=== PATIENT | male | born 1970 | race African-American/Black ===

== ENCOUNTER 2016-12-27 21:07 | Emergency (ER) | payer OTHER ==
[~2016-12-27] VITALS: Ht 175.3 cm; Wt 74.8 kg
[~2016-12-27 21:07] MED LIST: ACYCLOVIR 800800 MG PO; ALDACTONE100 MG PO; ALLOPURINOL 10100 M1 PO; AMBIEN; BENTYL 20 MG TA20 M1 PO; BREO ELLIPTA 11 EACH IH; COMPLERA TABLE1 EACH PO; ESTRADIOL 1 MG T1 M1 PO; IBUPROFEN 800800 M1; IBUPROFEN 800800 M1 PO; MEDROXYPROGEST2.5 MG PO; NORCO 5-325 TA1 EACH PO; NORVASC5 MG PO; PROSCAR 5MG TABL5 MG PO; PROZAC20 MG PO; RANITIDINE HCL300 MG PO; TESSALON PERLE100 MG PO; ZOFRAN ODT4 MG PO
[2016-12-27] MEDS ORDERED: KEFLEX500 MG PO (21:26)
[2016-12-27 21:44] VITALS: BP 121/80
== END 2016-12-27 21:45 | disposition home or self-care (01) ==
LOC: ER 21:07
DX: M21.612 Bunion of left foot (principal); L03.116 Cellulitis of left lower limb; F31.9 Bipolar disorder, unspecified; J45.909 Unspecified asthma, uncomplicated; F17.210 Nicotine dependence, cigarettes, uncomplicated; Z21 Asymptomatic human immunodeficiency virus [HIV] infection status

== ENCOUNTER → 2017-02-06 | Outpatient (CLI) | payer OTHER ==
[~2017-02-06] MED LIST changes: +KEFLEX500 MG PO
== END ==
LOC: MRI 11:28
DX: L02.612 Cutaneous abscess of left foot (principal)

== ENCOUNTER 2018-05-01 15:42 | Inpatient (IN) | payer OTHER ==
[~2018-05-01] VITALS: Ht 175.3 cm; Wt 70.3 kg
[2018-05-01] MEDS ORDERED: AMOXICILLIN 50500 MG PO (16:40)
[2018-05-01] MEDS ORDERED: BUSPIRONE HCL10 MG PO (16:40)
[2018-05-01] MEDS ORDERED: QUETIAPINE FUM100 MG PO (16:41)
[2018-05-01] MEDS ORDERED: COMPLERA TABLE1 EACH PO (16:42)
[2018-05-01] MEDS ORDERED: ATOMOXETINE HCL80 MG PO (16:43)
[2018-05-01 18:19] LABS: ABSOLUTE NEUTROPHILS 3.2 thou/uL (1.4-8.2); BASOPHILS 0.2 % (0.0-2.0); EOSINOPHILS 3.9 % (0.0-3.0); HEMATOCRIT 44.5 % (37.0-47.0); HEMOGLOBIN 15.3 gm/dL (12.0-15.0); LYMPHOCYTES 35.6 % (24.0-44.0); MCH 31.5 pg (26.0-34.0); MCHC 34.3 g/dL (28.0-37.0); MCV 91.8 fL (80.0-100.0); MONOCYTES 10.6 % (1.0-8.0); PLATELET COUNT 451 thou/uL (150-400); POLYS 49.7 % (36.0-66.0); RBC 4.85 mil/uL (4.20-5.00); RDW 13.5 % (10.5-14.5); WBC 6.4 thou/uL (4.0-11.0)
[2018-05-01 18:32] LABS: CALCIUM 8.9 mg/dL (8.5-10.1); CREATININE 0.9 mg/dL (0.6-1.0); POTASSIUM 3.7 mmol/L (3.5-5.1)
[2018-05-01 18:38] LABS: ALBUMIN 3.4 g/dL (3.4-5.0); TOTAL BILIRUBIN 0.5 mg/dL (<0.1-1.0); TOTAL PROTEIN 7.1 g/dL (6.4-8.2)
[2018-05-01 19:38] VITALS: BP 127/72
[2018-05-01 19:56] VITALS: BP 127/72
[2018-05-01 20:35] VITALS: BP 140/91
[2018-05-02 05:16] VITALS: BP 141/85
[2018-05-02 06:30] LABS: CALCIUM 9.2 mg/dL (8.5-10.1); POTASSIUM 4.1 mmol/L (3.5-5.1)
[2018-05-02 08:18] VITALS: BP 135/69
[2018-05-02 16:03] VITALS: BP 131/85
[2018-05-02 19:48] VITALS: BP 123/57
[2018-05-03 04:55] VITALS: BP 136/76
[2018-05-03 06:21] LABS: ABSOLUTE NEUTROPHILS 13.2 thou/uL (1.4-8.2); BASOPHILS 0.2 % (0.0-2.0); HEMATOCRIT 42.7 % (37.0-47.0); HEMOGLOBIN 14.6 gm/dL (12.0-15.0); LYMPHOCYTES 6.7 % (24.0-44.0); MCH 31.7 pg (26.0-34.0); MCHC 34.3 g/dL (28.0-37.0); MCV 92.4 fL (80.0-100.0); MONOCYTES 8.4 % (1.0-8.0); PLATELET COUNT 450 thou/uL (150-400); POLYS 84.7 % (36.0-66.0); RBC 4.62 mil/uL (4.20-5.00); RDW 13.5 % (10.5-14.5); WBC 15.6 thou/uL (4.0-11.0)
[2018-05-03 06:40] LABS: CALCIUM 9.2 mg/dL (8.5-10.1); CREATININE 0.8 mg/dL (0.6-1.0); POTASSIUM 4.4 mmol/L (3.5-5.1)
[2018-05-03 07:45] VITALS: BP 132/22
[2018-05-03] MEDS ORDERED: IPRAT-ALBUT 0.5-3 ML INH (08:58)
[2018-05-03] MEDS ORDERED: PREDNISONE 10 M10 MG PO (08:58)
[2018-05-03 13:18] VITALS: BP 132/77
[2018-05-03 16:15] VITALS: BP 132/77
== END 2018-05-03 16:53 | disposition home or self-care (01) | DRG 872 ==
LOC: ER 15:42 → EDSEX 15:42 → EROBS 19:23 → 4E 19:23
PROVIDERS: Hospitalist; Nurse Practitioner Family; Physician Assistant
DX: A41.9 Sepsis, unspecified organism (principal); J45.902 Unspecified asthma with status asthmaticus; B19.10 Unspecified viral hepatitis B without hepatic coma; F31.9 Bipolar disorder, unspecified; F17.210 Nicotine dependence, cigarettes, uncomplicated; F12.90 Cannabis use, unspecified, uncomplicated; F41.9 Anxiety disorder, unspecified; F90.9 Attention-deficit hyperactivity disorder, unspecified type; M54.30 Sciatica, unspecified side; Z23 Encounter for immunization
CPT/HCPCS: 10084

== ENCOUNTER 2018-08-24 17:31 | Emergency (ER) | payer OTHER ==
[~2018-08-24] VITALS: Ht 175.3 cm; Wt 83.9 kg
[~2018-08-24 17:31] MED LIST changes: +AMOXICILLIN 50500 MG PO; +ATOMOXETINE HCL80 MG PO; +BUSPIRONE HCL10 MG PO; +IPRAT-ALBUT 0.5-3 ML INH; +PREDNISONE 10 M10 MG PO; +QUETIAPINE FUM100 MG PO
[2018-08-24 18:37] VITALS: BP 132/78
[2018-08-24] MEDS ORDERED: TESSALON PERLE100 MG PO (18:37)
== END 2018-08-24 18:37 | disposition home or self-care (01) ==
LOC: ER 17:31
DX: J06.9 Acute upper respiratory infection, unspecified (principal); H92.02 Otalgia, left ear; I10 Essential (primary) hypertension; F31.9 Bipolar disorder, unspecified; J45.909 Unspecified asthma, uncomplicated; M54.30 Sciatica, unspecified side; F17.210 Nicotine dependence, cigarettes, uncomplicated

== ENCOUNTER 2019-01-16 21:55 | Inpatient (IN) | payer OTHER ==
[~2019-01-16] VITALS: Ht 175.3 cm; Wt 73.2 kg
--- NOTE | ~2019-01-16 | O ---
[facility] [place] [address] OPERATIVE REPORT Name: PEDRO PEARSON Room #: 431-P [facility] IN ..#: [id number] Admission: 01/17/19 ������������������ Attend Phys: Matt Christianson MD Discharge: 01/18/19 ������������������ Date of : 70 Report #: [id number] THIS REPORT FOR: //name// CC: Matt Christianson [facility] physician/PCP DATE OF SERVICE: 01/17/2019 PREOPERATIVE DIAGNOSIS: Left femoral hernia. POSTOPERATIVE DIAGNOSIS: Left femoral hernia. OPERATIVE PROCEDURE: Left femoral hernia repair with PerFix plug and onlay mesh. ANESTHESIA: General endotracheal with 0.5% Marcaine with epinephrine infiltrated into the wound site. ESTIMATED BLOOD LOSS: 2 mL. DESCRIPTION OF PROCEDURE: The patient was placed under general endotracheal anesthesia, the patient's left inguinal crease was prepped and draped in a sterile fashion. A timeout was taken. IV Ancef was administered. I infiltrated through a field block from the anterior superior iliac spine to the lateral border of the rectus down to the pubic tubercle and parallel to the inguinal ligament with 10 mL of the Marcaine with epinephrine mixture. A transverse incision of 6 cm was created with a #15 scalpel blade and cautery was used to dissect through the Chelsea's fascia down to the external oblique fibers. Next, external oblique fibers were incised with a fresh #15 scalpel blade. The edges were lifted up with 2 mosquitoes and opened with a Metzenbaum scissors from the external ring to the internal ring. The underlying tissues were teased away. A Weitlaner was placed at that location point, the cord structure was evaluated. It was not thickened. It was lifted off the pubic tubercle and encircled with a Clayton drain. I felt down the internal ring and then into the femoral canal and I could feel a patch on opening there, but there was no incarceration present. I then carefully brought out a PerFix plug large, trimmed it down to size and inserted into the femoral canal and anchored it in 3 locations along the Pete's ligament and along the transversalis fascia with interrupted 0 Prolene sutures. I then took the onlay patch and wrapped around the cord and laid in the inguinal floor and trimmed it to size and anchored it with 5 interrupted 0 Prolene sutures at the pubic tubercle, transversalis fascia and iliopubic tract. Once it was adequate in place, I infiltrated all the incisions sites with the Marcaine, epinephrine mixture. I then removed the Crispin drain. I let the cord lay in its natural position. I then reconstructed the external oblique fibers by closing it with a running 2-0 chromic suture. The Chelsea's fascia was reapproximated with interrupted 2-[address] [address] OPERATIVE REPORT Name: PEDRO PEARSON Room #: 431-P DIS IN M.R.#: [id number] Admission: 01/17/19 ������������������ Attend Phys: Matt Christianson MD Discharge: 01/18/19 ������������������ Date of : 70 Report #: [id number] chromic sutures and then the epidermis was closed with a running 4-0 PDS sutures and sealed with Dermabond. No specimens. Sponge and instrument counts correct. The patient was extubated and returned to recovery in stable condition. ��������������������������������������������� ���������������������������������������� By: ��������������������������������������������� 1426 1738 Nona Tello MD /nt
[2019-01-16 21:55] VITALS: BP 90/52
[2019-01-16 22:45] LABS: BASOPHILS 0.2 % (0.0-2.0); EOSINOPHILS 3.2 % (0.0-3.0); HEMATOCRIT 44.2 % (37.0-47.0); HEMOGLOBIN 15.3 gm/dL (12.0-15.0); LYMPHOCYTES 21.4 % (24.0-44.0); MCH 31.8 pg (26.0-34.0); MCHC 34.5 g/dL (28.0-37.0); MCV 92.2 fL (80.0-100.0); MONOCYTES 8.9 % (1.0-8.0); PLATELET COUNT 364 thou/uL (150-400); POLYS 66.3 % (36.0-66.0); RDW 13.6 % (10.5-14.5); WBC 7.5 thou/uL (4.0-11.0)
[2019-01-16 22:55] LABS: ANION GAP 11 mmol/L (7-16); BUN 12 mg/dL (7-18); CALCIUM 9.1 mg/dL (8.5-10.1); CHLORIDE 103 mmol/L (98-107); CO2 26 mmol/L (21-32); CREATININE 0.8 mg/dL (0.6-1.0); GLUCOSE 122 mg/dL (74-106); POTASSIUM 3.6 mmol/L (3.5-5.1); SODIUM 140 mmol/L (136-145)
[2019-01-16 23:06] LABS: ALBUMIN 4.1 g/dL (3.4-5.0); LIPASE 103 U/L (73-393); SGOT 73 U/L (15-37); SGPT 26 U/L (30-65); TOTAL BILIRUBIN 0.4 mg/dL (<0.1-1.0); TOTAL PROTEIN 7.7 g/dL (6.4-8.2); TROPONIN-I <0.06 ng/mL (<0.06)
[2019-01-16 23:25] LABS: URINE BILIRUBIN NEGATIVE (Negative); URINE BLOOD NEGATIVE (Negative); URINE CLARITY CLEAR; URINE COLOR YELLOW; URINE GLUCOSE-RANDOM* NEGATIVE (Negative); URINE KETONES TRACE (Negative); URINE LEUKOCYTES-REFLEX NEGATIVE (Negative); URINE NITRITE-REFLEX NEGATIVE (Negative); URINE PROTEIN (DIPSTICK) TRACE (Negative); URINE SPECIFIC GRAVITY 1.015 (1.005-1.035)
[2019-01-16 23:34] LABS: AMP/METHAMP Negative (Negative); BARBITURATES Negative (Negative); BENZODIAZEPINES Negative (Negative); COCAINE POSITIVE (Negative); METHADONE Negative (Negative); OPIATES Negative (Negative); PCP Negative (Negative)
[2019-01-17] VITALS (8 sets, daily range): BP systolic 11–144; BP diastolic 74–88
--- NOTE | 2019-01-17 05:37 | NUR ---
Pt arrived from ED APPROX 0330 via cart,up with SBA to bed. Pt A/OX4 though very drowsy and hard to participate in admission assessment. C/o abd pain and rolling side to side in bed,medicated with Morphine and resting quietly at this time. Admission paperwork signed.Pt educated on the importance of maintaining NPO status as ordered and verbalizes understanding. IVF infusing via LEJ without any problems. Pt reports she hasn't been taking some meds at home because she doesn't have them but not she's not sure off her mind which ones. Resting comfortably at this time will continue to monitor pt.
--- NOTE | 2019-01-17 07:36 | EKG ---
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 : 1970 Requested By: Pete Betancourt Order Number: [id number] MD: Nelson Alcaraz Measurements Intervals [place] Rate: 67 P: 5 WV: 142 QRS: 46 QRSD: 86 T: 60 QT: 446 QTc: 471 Interpretive Statements Baseline artifact Sinus rhythm No significant abnormality No previous ECG available for comparison Electronically Signed On 01-17-2019 7:36:05 CDT by Nelosn Alcaraz [email or web address] ��������������������������������������������� <ELECTRONICALLY SIGNED> ���������������������������������������� By: Nelson Alcaraz MD, [facility] ��������������������������������������������� 01/17/19 0736 223 30 Nelson Alcaraz MD, FACC /EPI
--- NOTE | 2019-01-17 12:19 | NUR ---
Assumed pt care at 7am.Pt in bed sleeping but woke up during shift change report and c/o abdominal pain.Morphine ivp given with zofran as ordered with relief.Pt took shower and made comfortable.Received call from Dr Goff and order noted.Pt signed consent for surgery.At 1200,pt left per for surgery accompanied by transporter and volunteer.
--- NOTE | 2019-01-17 13:19 | NUR ---
ASSESSMENT-PT SAYS SHE LIVES AT HOME ALONE. PT TELLS ME SHE STILL HAS THE NEBULIZER THAT CAME FROM [facility] ON A PREVIOUS ADMISSION. PT'S LAUNDRY IS LOCATED IN THE BASEMENT. PT WALKS ON HER OWN AND DOES HER OWN ADLS. FOLLOWING TO ASSIST WITH DC PLANNING.
--- NOTE | 2019-01-18 01:03 | NUR ---
ASSUMED CARE AT 1900, ASSESSMENT COMPLETED. PT C/O PAIN IN LEFT GROIN, WORSE WITH MOVEMENT OR TOUCH, IMPROVED WITH PAIN MEDS. DENIES NAUSEA, ASKED FOR MULTIPLE SNACKS AND DRINKS. DENIES SOB. LEFT GROIN INCISION C/D/I WITH DERMABOND. TRANSFERRED CARE AT 2300, NO OTHER CONCERNS, PT IN STABLE CONDITION.
--- NOTE | 2019-01-18 03:50 | NUR ---
PATIENT ALERT AND ORIENTED. UP IN HALLS. ABD INCISION W/O S/S OF INFECTION. C/O PAIN, MED GIVEN. SLEPT SOME THIS SHIFT.
[2019-01-18 05:13] VITALS: BP 113/67
[2019-01-18 07:50] VITALS: BP 129/105
[2019-01-18] MEDS ORDERED: HYDROCODON-ACE1 EAC7 PO (09:31)
[2019-01-18 10:33] VITALS: BP 129/105
--- NOTE | 2019-01-18 11:44 | NUR ---
PATIENT TO DISCHARGE TODAY IV ACSESS DCD AT THIS TIME. PT ALSO GIVEN PRN PAIN MED AT THIS TIME.
[2019-01-18 13:28] VITALS: BP 129/105
[2019-01-18 13:52] VITALS: BP 129/105
== END 2019-01-18 13:55 | disposition home or self-care (01) | DRG 351 ==
LOC: ER 21:55 → EROBS 01-17 02:51 → 4E 01-17 02:51 → ENTRNSPT 01-18 13:36 → 4E 01-18 13:55
PROVIDERS: Emergency Medicine; ADMIT Hospitalist
PROC: 0YU80JZ Supplement Left Femoral Region with Synthetic Substitute, Open Approach (ICD-10-PCS; principal; 2019-01-17)
DX: K41.30 Unilateral femoral hernia, with obstruction, without gangrene, not specified as recurrent (principal); B19.10 Unspecified viral hepatitis B without hepatic coma; I10 Essential (primary) hypertension; F31.9 Bipolar disorder, unspecified; J45.909 Unspecified asthma, uncomplicated; F14.10 Cocaine abuse, uncomplicated; Z60.2 Problems related to living alone; Z90.49 Acquired absence of other specified parts of digestive tract; Z86.19 Personal history of other infectious and parasitic diseases; Z71.89 Other specified counseling; Z71.6 Tobacco abuse counseling; Z93.3 Colostomy status
CPT/HCPCS: 10084; 50010; 50101; 50386; 50417; 54118; 54120; 56524; 56525; 56526; 62110; 62900; 70005

== ENCOUNTER 2019-03-31 19:57 | Emergency (ER) | payer OTHER ==
[~2019-03-31] VITALS: Ht 175.3 cm; Wt 74.8 kg
[~2019-03-31 19:57] MED LIST changes: +HYDROCODON-ACE1 EAC7 PO; +ODEFSEY TABLET1 EACH PO
[2019-03-31 21:44] LABS: BE(vivo) -0.4 mmol/L (-2 to +3); HCO3 23.1 mmol/L (22.0-26.0); PCO2 34.9 mmHg (35.0-45.0); PO2 114.5 mmHg (80.0-100.0); pH 7.439 (7.360-7.450); sO2 98.3 % (92.0-98.0)
[2019-03-31 21:52] LABS: HEMATOCRIT 44.9 % (37.0-47.0); HEMOGLOBIN 15.1 gm/dL (12.0-15.0); MCH 31.6 pg (26.0-34.0); MCHC 33.6 g/dL (28.0-37.0); MCV 94.3 fL (80.0-100.0); PLATELET COUNT 334 thou/uL (150-400); RBC 4.76 mil/uL (4.20-5.00); RDW 14.6 % (10.5-14.5); WBC 6.2 thou/uL (4.0-11.0)
[2019-03-31 22:52] LABS: ANION GAP 8 mmol/L (7-16); BUN 10 mg/dL (7-18); CALCIUM 8.8 mg/dL (8.5-10.1); CHLORIDE 104 mmol/L (98-107); CO2 24 mmol/L (21-32); CREATININE 0.9 mg/dL (0.6-1.0); GLUCOSE 98 mg/dL (74-106); SODIUM 136 mmol/L (136-145)
[2019-03-31 22:58] LABS: ABSOLUTE NEUTROPHILS 3.4 thou/uL (1.4-8.2)
[2019-03-31 23:03] LABS: ALBUMIN 3.6 g/dL (3.4-5.0); SGOT 56 U/L (15-37); SGPT 14 U/L (30-65); TOTAL BILIRUBIN 0.5 mg/dL (<0.1-1.0); TOTAL PROTEIN 7.2 g/dL (6.4-8.2); TROPONIN-I <0.06 ng/mL (<0.06)
[2019-03-31] MEDS ORDERED: DOXYCYCLINE 10100 MG PO (23:19)
[2019-03-31] MEDS ORDERED: PROMETH-CODEIN 65 ML PO (23:19)
[2019-03-31] MEDS ORDERED: PREDNISONE 20 M20 M1 PO (23:19)
[2019-04-01 00:15] VITALS: BP 122/62
--- NOTE | 2019-04-01 08:16 | EKG ---
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: NENA : 1970 Requested By: Saba Diaz Order Number: [id number] MD: Nelson Alcaraz Measurements Intervals [place] Rate: 92 P: 72 [place]: 125 QRS: 55 QRSD: 102 T: 31 QT: 360 QTc: 446 Interpretive Statements Sinus rhythm Ventricular premature complex Compared to ECG 01/16/2019 22:31:15 Ventricular premature complex(es) now present Electronically Signed On 04-01-2019 8:16:06 CDT by Nelson Alcaraz [email or web address] <ELECTRONICALLY SIGNED> By: Nelson Alcaraz MD, [facility] 04/01/19815 03 03 Nelson Alcaraz MD, FACC /EPI
[2019-04-02] MEDS ORDERED: VENTOLIN HFA 1818 GM INH (14:43)
[2019-04-02] MEDS ORDERED: XANAX 0.5 MG0.5 MG PO (14:46)
[2019-04-02] MEDS ORDERED: [UNRECOGNIZED DRUG - OTHER] SUBQ (14:52)
== END 2019-04-01 00:23 | disposition home or self-care (01) ==
LOC: ER 19:57
PROVIDERS: Physician Assistant
DX: J20.9 Acute bronchitis, unspecified (principal); I10 Essential (primary) hypertension; J45.909 Unspecified asthma, uncomplicated; F31.9 Bipolar disorder, unspecified; F90.9 Attention-deficit hyperactivity disorder, unspecified type; F17.210 Nicotine dependence, cigarettes, uncomplicated; Z20.2 Contact with and (suspected) exposure to infections with a predominantly sexual mode of transmission; Z98.890 Other specified postprocedural states; Z71.6 Tobacco abuse counseling

== ENCOUNTER 2019-04-01 11:58 | Inpatient (IN) | payer OTHER ==
[~2019-04-01] VITALS: Ht 175.3 cm; Wt 80.7 kg
[~2019-04-01 11:58] MED LIST changes: +DOXYCYCLINE 10100 MG PO; +PREDNISONE 20 M20 M1 PO; +PROMETH-CODEIN 65 ML PO
[2019-04-01 11:59] VITALS: BP 156/131
[2019-04-01 12:46] LABS: ABSOLUTE NEUTROPHILS 10.1 thou/uL (1.4-8.2); BASOPHILS 0.1 % (0.0-2.0); EOSINOPHILS 0.4 % (0.0-3.0); HEMATOCRIT 42.5 % (37.0-47.0); HEMOGLOBIN 14.4 gm/dL (12.0-15.0); LYMPHOCYTES 5.7 % (24.0-44.0); MCH 31.7 pg (26.0-34.0); MCHC 33.9 g/dL (28.0-37.0); MCV 93.3 fL (80.0-100.0); MONOCYTES 5.1 % (1.0-8.0); PLATELET COUNT 359 thou/uL (150-400); POLYS 88.7 % (36.0-66.0); RBC 4.55 mil/uL (4.20-5.00); WBC 11.4 thou/uL (4.0-11.0)
[2019-04-01 12:52] LABS: CALCIUM 9.1 mg/dL (8.5-10.1); CREATININE 0.9 mg/dL (0.6-1.0); POTASSIUM 4.5 mmol/L (3.5-5.1)
[2019-04-01 12:56] LABS: BE(vivo) -2.1 mmol/L (-2 to +3); HCO3 21.7 mmol/L (22.0-26.0); PCO2 34.7 mmHg (35.0-45.0); PO2 65.3 mmHg (80.0-100.0); pH 7.414 (7.360-7.450); sO2 93.3 % (92.0-98.0)
[2019-04-01 12:58] LABS: ALBUMIN 4.1 g/dL (3.4-5.0); TOTAL BILIRUBIN 0.5 mg/dL (<0.1-1.0); TOTAL PROTEIN 8.3 g/dL (6.4-8.2)
[2019-04-01 16:50] VITALS: BP 135/64
[2019-04-01 17:25] VITALS: BP 146/86
[2019-04-01 17:50] VITALS: BP 121/77
[2019-04-01 18:13] VITALS: BP 114/79
[2019-04-01 19:28] VITALS: BP 154/84
[2019-04-02 01:45] VITALS: BP 154/84
[2019-04-02 02:56] VITALS: BP 133/80
--- NOTE | 2019-04-02 03:11 | NUR ---
ASSESSMENT CHARTED VSS. SHIFT CHANGE ADMIT, COMPLETE. PT C/O COUGH, RT TREATMENTS, MEDS PER EMAR HELPING. ABX AND FLUIDS RUNNING PER ORDERS. FRIEND AT BEDSIDE. SLEEPING ON AND OFF THROUGHOUT NIGHT. LACTIC ACID TRENDING DOWN. WILL CONTINUE TO MONITOR AND WITH POC.
[2019-04-02 05:54] LABS: HEMATOCRIT 45.3 % (37.0-47.0); HEMOGLOBIN 14.7 gm/dL (12.0-15.0); MCH 31.1 pg (26.0-34.0); MCHC 32.5 g/dL (28.0-37.0); MCV 95.7 fL (80.0-100.0); RBC 4.73 mil/uL (4.20-5.00); RDW 14.8 % (10.5-14.5); WBC 12.4 thou/uL (4.0-11.0)
[2019-04-02 06:35] LABS: ALBUMIN 3.9 g/dL (3.4-5.0); CALCIUM 9.3 mg/dL (8.5-10.1); CREATININE 0.9 mg/dL (0.6-1.0); MAGNESIUM 1.9 mg/dL (1.8-2.4); TOTAL BILIRUBIN 0.3 mg/dL (<0.1-1.0); TOTAL PROTEIN 8.1 g/dL (6.4-8.2)
[2019-04-02 07:30] VITALS: BP 132/83
[2019-04-02 11:44] VITALS: BP 130/76
[2019-04-02] MEDS ORDERED: VENTOLIN HFA 1818 GM INH (14:43)
[2019-04-02] MEDS ORDERED: XANAX 0.5 MG0.5 MG PO (14:46)
[2019-04-02] MEDS ORDERED: [UNRECOGNIZED DRUG - OTHER] SUBQ (14:52)
--- NOTE | 2019-04-02 15:57 | NUR ---
PATIENT RECEIVING BREATHING TREATMENTS AND MEDS PER ORDERS. CONTINUES TO REPORT FEELING CONGESTED. FLUTTER VALVE REQUESTED FROM RESPIRATORY THERAPY. UP AD JAMES WITH STEADY GAIT. SHOWERED THIS SHIFT. REPORT GIVEN TO SOFY LIRA.
--- NOTE | 2019-04-02 17:30 | NUR ---
ASSUMED CARE AT 1600, REPORT FROM GAEL MILIAN RN. NO CHANGES IN ASSESSMENT. HAS JUST BEEN ASSISTED WITH BATH. SR/SB PER TELE. WILL CONTINUE TO MONITOR CLOSELY.
[2019-04-02 19:58] VITALS: BP 96/78
[2019-04-03 04:45] VITALS: BP 149/89
--- NOTE | 2019-04-03 05:25 | NUR ---
PATIENTS CARES WERE ASSUMED AT SHIFT CHANGE. PATIENT WAS ASSESSED AND MEDS WERE PASSED. PATIENT DID HAVE ALOT TO EAT THIS SHIFT. WORKED HARD TO GET HIM TO CONCIDER CHICKEN BROTH OVER A SNACK BOX AT 0300. THE PATIENT HAS HOURLY ROUNDING, THE BED IS IN A LOM AND LOCKED POSITION.
[2019-04-03 05:43] LABS: HEMATOCRIT 43.2 % (37.0-47.0); HEMOGLOBIN 14.3 gm/dL (12.0-15.0); MCH 31.4 pg (26.0-34.0); RBC 4.55 mil/uL (4.20-5.00); RDW 14.6 % (10.5-14.5); WBC 12.3 thou/uL (4.0-11.0)
[2019-04-03 05:59] LABS: ALBUMIN 3.5 g/dL (3.4-5.0); CALCIUM 9.1 mg/dL (8.5-10.1); POTASSIUM 4.4 mmol/L (3.5-5.1); TOTAL BILIRUBIN 0.2 mg/dL (<0.1-1.0); TOTAL PROTEIN 7.5 g/dL (6.4-8.2)
[2019-04-03 07:45] VITALS: BP 131/82
[2019-04-03 12:06] VITALS: BP 118/71
[2019-04-03 16:07] VITALS: BP 128/70
--- NOTE | 2019-04-03 17:04 | NUR ---
ASSESSMENT CHARTED - MEDS PER SEP - NO CO'S OF PAIN OR NAUSEA. SUSAN DIET AND FLUIDS. PT HAS BEEN SLEEPING FOR MOST OF THE DAY - STATED THAT THE SEROQUEL THAT WAS TAKEN LAST NIGHT - KEPT HIM UP AND HE HAS BEEN TIERD TODAY. LUNGS REMAIN WITH WHEEZES IHN ALL LOBES. UP AD JAMES IN ROOM. NO CO'S AT THE PRESENT TIME.
[2019-04-03 20:30] VITALS: BP 103/57
--- NOTE | 2019-04-04 02:27 | NUR ---
A/O X 4.PATIENT HAS BEEN COUGHING HARD.COUGH MEDICINE WAS GIVEN.PT IS ASKING FOR EXTRA ANTIBIOTICS AND TO RESTART IV FLUIDS.NO NEW ORDERS RECEIVED AFTER SPEAKING TO THE NURSE PRACTITIONER.GUIAFENESIN LIQUID WAS ORDERED INSTEAD AND PT TOOK IT.PT NOTED TO BE SLEEPING AFTER PAIN MEDS WAS GIVEN.MONITOR SHOWS SINUS TACHY AFTER BREATHING TREATMENT.WILL MONITOR AND CONTINUE POC.
[2019-04-04 04:45] VITALS: BP 122/72
[2019-04-04 05:36] LABS: HEMATOCRIT 44.4 % (37.0-47.0); HEMOGLOBIN 14.4 gm/dL (12.0-15.0); MCH 31.3 pg (26.0-34.0); MCHC 32.5 g/dL (28.0-37.0); MCV 96.4 fL (80.0-100.0); RBC 4.61 mil/uL (4.20-5.00); RDW 15.2 % (10.5-14.5)
[2019-04-04 05:38] LABS: ALBUMIN 3.3 g/dL (3.4-5.0); CALCIUM 8.6 mg/dL (8.5-10.1); MAGNESIUM 2.1 mg/dL (1.8-2.4); POTASSIUM 4.1 mmol/L (3.5-5.1); TOTAL BILIRUBIN 0.2 mg/dL (<0.1-1.0); TOTAL PROTEIN 7.1 g/dL (6.4-8.2)
[2019-04-04 08:00] VITALS: BP 127/86
[2019-04-04 08:17] VITALS: BP 127/86
[2019-04-04] MEDS ORDERED: LEVAQUIN 500 M500 M2 PO (10:31)
[2019-04-04] MEDS ORDERED: ROBITUSSIN15 MG/5 ML PO (10:31)
[2019-04-04] MEDS ORDERED: PREDNISONE 10 M10 MG PO (10:36)
[2019-04-04 11:53] VITALS: BP 127/86
--- NOTE | 2019-04-04 14:28 | NUR ---
ASSESSMENT CHARTED - MEDS PER SEP - CO'S OF NECK AND SHOULDER PAIN - GIVEN HYDROCODONE WITH EFFECT - CO'S OF COUGH GIVEN ROBITUSSIN WITH EFFECT - UP AD JAMES IN ROOM - SUSAN DIET AND FLUIDS WITH NO CO'S OF NAUSEA. PT DISCHARGED THIS AFTERNOON - IV AND MONITOR REMOVED - INSTRUCTION RE HOME MEDS/ CARE AND FOLLOW UP GIVEN TO APTIENT STATED UNDERSTANDING OF INSTRUCTION GIVEN - LEFT UNIT AMUBLATORY ACCOMPANIED BY JAM. HOME VIA PVT VEHICLE - NO CO'S AT TIME OF D/C.
== END 2019-04-04 13:30 | disposition home or self-care (01) | DRG 871 ==
LOC: ER 11:58 → EROBS 12:28 → 2N 12:28
PROVIDERS: Physician Assistant; ADMIT Internal Medicine
DX: A41.9 Sepsis, unspecified organism (principal); J96.01 Acute respiratory failure with hypoxia; J45.901 Unspecified asthma with (acute) exacerbation; B19.10 Unspecified viral hepatitis B without hepatic coma; E87.2 Acidosis; J44.1 Chronic obstructive pulmonary disease with (acute) exacerbation; J44.0 Chronic obstructive pulmonary disease with (acute) lower respiratory infection; F31.9 Bipolar disorder, unspecified; F12.90 Cannabis use, unspecified, uncomplicated; F17.210 Nicotine dependence, cigarettes, uncomplicated; R00.0 Tachycardia, unspecified; G89.29 Other chronic pain; R39.89 Other symptoms and signs involving the genitourinary system; F90.9 Attention-deficit hyperactivity disorder, unspecified type; F41.9 Anxiety disorder, unspecified; Z71.6 Tobacco abuse counseling; Z79.899 Other long term (current) drug therapy; J40 Bronchitis, not specified as acute or chronic
CPT/HCPCS: 10081

== ENCOUNTER 2019-04-29 18:20 | Emergency (ER) | payer OTHER ==
[~2019-04-29] VITALS: Ht 175.3 cm; Wt 83.9 kg
[~2019-04-29 18:20] MED LIST changes: -BUSPIRONE HCL10 MG PO; +BUSPIRONE HCL7.5 MG PO; +LEVAQUIN 500 M500 M2 PO; +ROBITUSSIN15 MG/5 ML PO; +VENTOLIN HFA 1818 GM INH; +XANAX 0.5 MG0.5 MG PO; +[UNRECOGNIZED DRUG - OTHER] SUBQ
[2019-04-29 20:31] LABS: URINE BILIRUBIN NEGATIVE (Negative); URINE BLOOD TRACE (Negative); URINE CLARITY CLEAR; URINE COLOR YELLOW; URINE GLUCOSE-RANDOM* NEGATIVE (Negative); URINE KETONES NEGATIVE (Negative); URINE LEUKOCYTES-REFLEX NEGATIVE (Negative); URINE NITRITE-REFLEX NEGATIVE (Negative); URINE PROTEIN (DIPSTICK) NEGATIVE (Negative)
[2019-04-29] MEDS ORDERED: MIRALAX17 GM PO (20:45)
[2019-04-29] MEDS ORDERED: DULCOLAX10 MG RECTAL (20:45)
[2019-04-29] MEDS ORDERED: ZOFRAN ODT4 MG PO (20:56)
[2019-04-29 21:19] VITALS: BP 154/91
--- NOTE | 2019-04-30 08:00 | EKG ---
[address] [address] ELECTROCARDIOGRAM REPORT Name: PEDRO PEARSON Room #: [facility]#: [id number] Admission: 04/29/19 Attend Phys: Discharge: 04/29/19 Date of : 70 Report #: [id number] THIS REPORT FOR: //name// [facility] ED Test Date: 2019-04-29 Test Time: 18:27:17 Pat Name: PEDRO LEDESMALENDON Department: Room: Gender: F Public Relations: AISSATOU : 1970 Requested By: Adam Lopez Order Number: [id number] MD: Nelson Alcaraz Measurements Intervals [place] Rate: 75 P: 44 KS: 126 QRS: 55 QRSD: 77 T: 46 QT: 381 QTc: 426 Interpretive Statements Sinus rhythm Normal tracing Compared to ECG 03/31/2019 20:04:22 Ventricular premature complex(es) no longer present Electronically Signed On 04-30-2019 8:00:38 CDT by Nelson Alcaraz [email or web address] <ELECTRONICALLY SIGNED> By: Nelson Alcaraz MD, [facility] 04/30/19 0800 26 26 Nelson Alcaraz MD, FAC /EPI
== END 2019-04-29 21:10 | disposition home or self-care (01) ==
LOC: ER 18:20
PROVIDERS: Emergency Medicine
DX: K59.00 Constipation, unspecified (principal); R10.32 Left lower quadrant pain; I10 Essential (primary) hypertension; J45.909 Unspecified asthma, uncomplicated; F31.9 Bipolar disorder, unspecified; F90.9 Attention-deficit hyperactivity disorder, unspecified type; F17.210 Nicotine dependence, cigarettes, uncomplicated; Z21 Asymptomatic human immunodeficiency virus [HIV] infection status

== ENCOUNTER 2019-05-01 07:44 | Inpatient (IN) | payer OTHER ==
[2019-05-01] VITALS (7 sets, daily range): BP systolic 103–133; BP diastolic 63–91
[~2019-05-01] VITALS: Ht 175.3 cm; Wt 85.3 kg
--- NOTE | ~2019-05-01 | EMS ---
[address] [address] EMS Patient Care Report Name: PEDRO PEARSON Room #: [facility] M.R.#: [id number] Admission: Attend Phys: Discharge: Date of : 70 Report #: [id number] THIS REPORT FOR: //name// Report Transmitted: 05/01/2019 07:31 EMS Care Summary [place], [place]/[facility] Incident [id number] @ 05/01/2019 06:49 Incident Location [address] [place] [address] Patient PEDRO PEARSON Male, 48 Years 1970 Patient Address [address] [place] [address] Patient History Asthma,Chronic Obstructive Pulmonary Disease (COPD),Hypertension,Human Immunodeficiency Virus Disease (HIV/AIDS),Anxiety,Post Traumatic Stress Disorder (PTSD),Pancreatitis, Patient Allergies No known allergies, Patient Medications Unknown, Chief Complaint pain to all quadrants in abd c constipation Disposition Transported No Lights/[place] Reason Abdominal Pain/Problems Transported To [facility] Narrative 48 y/o male found ambulatory out of home c a cane upon our arrival. [facility] pumper 23 on scene. pt ambulates in s mccray manner et it hard to keep up c. pt c/o [address] [address] EMS Patient Care Report Name: PEDRO PEARSON Room #: PRE [facility].#: [id number] Admission: Attend Phys: Discharge: Date of : 70 Report #: [id number] pain to all quadrants of his abd since monday. pt states that he was seen monday evening @ [facility] for the same complaints. pt states that he has taken the mirilax twice a day since then like the doctor prescribed. pt states that he has had 2-3 brown mucus like stools c flecks of red in them since. pt also states that he has not eaten anything in the last 2 days per doctors instructions. pt states that he emesised once yesterday et once today that was brown clear liquid like bile from your stomach. pt states that he has been drinking about a gallon of h2o a day. pt is a&ox 3. pt is assisted onto stretcher et then moved to unit. pt gets very agitated et rude c ems as we ask questions to assess pt. pt lies et rests comfortably enroot to the er c no crying out in pain. pt remains stable enroot c no problems. pt care is transferred to [facility] er nursing staff. pt prefers to be called pasha. Initial Vitals @07:04P: 77,R: 16,BP: 114/73,Pain: 10/10,GCS: 15,CO: 0,SpO2: 97,Revised Trauma: 12, @07:24P: 78,R: 16,BP: 126/80,Pain: 10/10,GCS: 15,SpO2: 97,Revised Trauma: 12, Assessments @06:57MENTAL:No Abnormalities,SKIN:HEENT:Eyes: Right Pupil: 3-mm,Eyes: Left Pupil: 3-mm,Head/Face: No Abnormalities,Neck/Airway: No Abnormalities,LUNG SOUNDS:General: Diarrhea,Left Upper: Tenderness,Right Upper: Tenderness,Left Lower: Tenderness,General: Vomiting,Right Lower: Tenderness,ABDOMEN:General: Diarrhea,Left Upper: Tenderness,Right Upper: Tenderness,Left Lower: Tenderness,General: Vomiting,Right Lower: Tenderness,PELVIS//GI:Pelvis GUOther,EXTREMITIES:Capillary Refill: Left Lower: < 2 Sec,Capillary Refill: Right Lower: < 2 Sec,Capillary Refill: Right Upper: < 2 Sec,Capillary Refill: Left Upper: < 2 Sec,Left Arm: No Abnormalities,Right Arm: No Abnormalities,Left Leg: No Abnormalities,Right Leg: No Abnormalities,PULSE:Brachial: 2+ Normal,Pedal: 2+ Normal,Carotid: 2+ Normal,Femoral: 2+ Normal,Radial: 2+ Normal,NEURO:No Abnormalities, Impression Abdominal Pain Procedures @06:57ALS AssessmentResponse: UnchangedSucceeded Timeline 06:46,Call Received 06:46,Dispatch Notified 06:49,Dispatched 06:49,En Route 06:56,On Scene [address] [address] EMS Patient Care Report Name: PEDRO PEARSON Room #: [facility]#: [id number] Admission: Attend Phys: Discharge: Date of : 70 Report #: [id number] 06:57,At Patient 06:57,ALS Assessment,Response: UnchangedSucceeded, 07:04,BP: 114/73 M,PULSE: 77,RR: 16 R,SPO2: 97 Ox,ETCO2: ,BG: ,PAIN: 10,GCS: 15, 07:07,Depart Scene 07:24,BP: 126/80 M,PULSE: 78,RR: 16 R,SPO2: 97 Ox,ETCO2: ,BG: ,PAIN: 10,GCS: 15, 08:00,At Destination 08:28,Call Closed Disclaimer v1.1 Copyright 2019 [employer] This EMS Care Summary contains data elements from the applicable legal record (which may be displayed differently). It is designed to provide pertinent information for the following purposes: continuity of care, clinical quality, and state data reporting. The complete legal record is available to ED staff and administrators of the receiving hospital in ES's Patient Tracker. All data is provided "as is."
[~2019-05-01 07:44] MED LIST changes: +DULCOLAX10 MG RECTAL; +MIRALAX17 GM PO
[2019-05-01 08:11] LABS: HEMATOCRIT 39.9 % (37.0-47.0); HEMOGLOBIN 13.2 gm/dL (12.0-15.0); MCH 30.7 pg (26.0-34.0); MCHC 33.2 g/dL (28.0-37.0); MCV 92.5 fL (80.0-100.0); PLATELET COUNT 384 thou/uL (150-400); RBC 4.31 mil/uL (4.20-5.00); RDW 13.9 % (10.5-14.5); WBC 11.9 thou/uL (4.0-11.0)
[2019-05-01 08:19] LABS: CALCIUM 8.9 mg/dL (8.5-10.1); CREATININE 0.9 mg/dL (0.6-1.0); POTASSIUM 3.4 mmol/L (3.5-5.1)
[2019-05-01 08:25] LABS: TOTAL BILIRUBIN 0.5 mg/dL (<0.1-1.0); TOTAL PROTEIN 7.1 g/dL (6.4-8.2)
[2019-05-01 08:43] LABS: URINE BILIRUBIN NEGATIVE (Negative); URINE BLOOD TRACE (Negative); URINE CLARITY CLEAR; URINE COLOR YELLOW; URINE GLUCOSE-RANDOM* NEGATIVE (Negative); URINE KETONES NEGATIVE (Negative); URINE LEUKOCYTES-REFLEX NEGATIVE (Negative); URINE NITRITE-REFLEX NEGATIVE (Negative); URINE PROTEIN (DIPSTICK) NEGATIVE (Negative)
[2019-05-01 08:58] LABS: ABSOLUTE NEUTROPHILS 8.7 thou/uL (1.4-8.2); PLATELET ESTIMATE NORMAL
[2019-05-01] MEDS ORDERED: SUPER THERAVIT1 EACH PO (15:03)
--- NOTE | 2019-05-01 16:49 | EKG ---
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: BARB : 1970 Requested By: Shaun Valle Order Number: [id number] MD: Nehemias Cheng Measurements Intervals [place] Rate: 78 P: 59 PA: 120 QRS: 50 QRSD: 100 T: 44 QT: 370 QTc: 422 Interpretive Statements Sinus rhythm left atrial enlargement Early transition Baseline artifact Nonspecific ST-T wave changes Compared to ECG 04/29/2019 18:27:17 No significant changes Electronically Signed On 05-01-2019 16:49:23 CDT by Nehemias Cheng [email or web address] <ELECTRONICALLY SIGNED> By: Nehemias Cheng MD 05/01/19 4479 2 2 Nehemias Cheng MD /EPI
--- NOTE | 2019-05-01 19:32 | NUR ---
Admitted pt on the floor from ED due to jaron-rectal abscess. A+Ox4. On room air. On nothing per la sal- pt informed and aware. Vital signs stable. Admission care, assessment and forms signed by patient. With consult for Dr Claros- US called in, as per Dr Claros will see patient shortly. Falls risk- falls bundle in place, on standby assist. With HIV meds from home- pharmacy called in to verify meds- form signed by patient. IVF of D5NS started as prescribed at L [facility], infusing at 100cc/hr, IV antibiotics started as well. Pt seen by Dr Claros- assessment done; for OR today- consent for procedure signed by pt. Report given to pre-op nurse. Pt back to [facility] from recovery room at 1800, post op vital signs taken and recorded; complained of pain, due PRN pain meds given as prescribed. On regular diet- tolerated well, no nausea, no vomiting and abdominal pain noted after eating. To continue monitoring patient.
[2019-05-02] VITALS: BP 118/79
--- NOTE | 2019-05-02 02:18 | NUR ---
ASSUMED CARE AROUND 1900. AXOX4. S/P I&D OF PERIRECTAL ABSCESS. MISSED MORNING MEDS WERE GIVEN AFTER PERMISSION WAS GRANTED BY STRIP MACHINE OPERATOR COGNOS BI ADMINISTRATOR FOR . PT HAD MULTIPLE LOOSE BM DUE TO MIRALAX INGESSTION PRIOR TO ADMISSION. RECTAL DRESSINF WAS SOAKED WITH BLOOD AND FECES THAT HAD TO BE REMOVED AROUND 0200. PT DID NOT TOLERATE PROCEDURE VERY WELL. ATTEMPTED TO PACK RECTUN WITH IODOFORM, PT REFUSED TX. PLACED GAUZE AND PAD FOR MONITOR FOR ANY EXCESS BLEEDING FROM THE SURGERY SITE. NO S/S ACUTE DISTRESS NOTED OR REPORTED AT THIS TIME. WILL CONT TO MONITOR FOR ANY CHANGES IN CONTIION
[2019-05-02 03:49] LABS: CALCIUM 8.3 mg/dL (8.5-10.1)
[2019-05-02 03:50] VITALS: BP 106/58
[2019-05-02 03:51] LABS: HEMATOCRIT 39.6 % (37.0-47.0); HEMOGLOBIN 12.9 gm/dL (12.0-15.0); MCH 30.4 pg (26.0-34.0); MCHC 32.5 g/dL (28.0-37.0); MCV 93.5 fL (80.0-100.0); RBC 4.24 mil/uL (4.20-5.00); RDW 13.9 % (10.5-14.5); WBC 15.2 thou/uL (4.0-11.0)
[2019-05-02 08:00] VITALS: BP 108/52
--- NOTE | 2019-05-02 12:07 | NUR ---
INITIAL ASSESSMENT: SW reviewed chart and spoke with attending physician. Pt was admitted from home due to perirectal abscess. Pt is s/p I&D of abscess and is on IV abx. Pt with hx of HIV. 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 SW met with pt at bedside. Introduced role of SW. Pt is alert/orienated x 4. Pt reports she lives at home alone. Prior to admission, pt was independent with ADLs. Pt states she does have a cane and walker at home. Pt has a nebulizer at home for breathing treatments, which was provided by [facility]. NO hx of services. Pt's PCP is Dr. Petar Perez. Pt's mother is involved and supportive in pt's care. Plan is for pt to discharge home when medically stable. SW is following to assist as needed with discharge planning.
[2019-05-02] MEDS ORDERED: AUGMENTIN 875-1 EACH PO (12:50)
[2019-05-02 13:18] VITALS: BP 106/58
--- NOTE | 2019-05-03 11:33 | O ---
[facility] [place] [address] OPERATIVE REPORT Name: PEDRO PEARSON Room #: 463-P [facility]#: [id number] Admission: 05/01/19 Attend Phys: Marielena Garcia MD Discharge: 05/02/19 Date of : 70 Report #: [id number] THIS REPORT FOR: //name// CC: Selena Garcia DATE OF SERVICE: 05/01/2019 PROCEDURE PERFORMED: Transrectal drainage of perirectal abscess. PREPROCEDURAL DIAGNOSES: 1. Perirectal abscess, supralevator. 2. Human immunodeficiency virus. 3. Hepatitis B. POSTPROCEDURAL DIAGNOSES: 1. Perirectal abscess, supralevator. 2. Human immunodeficiency virus. 3. Hepatitis B. SURGEON: Antwan Claros M.D. ANESTHETIC: 1. General. 2. Local. ESTIMATED BLOOD LOSS: 10 mL. URINE OUTPUT: Not measured. COMPLICATIONS: None. FINDINGS: The patient had a large fluid collection in the perirectal space, supralevator position, which is purulent, foul-smelling fluid. Large volume was expressed. SPECIMENS: Gram stain and culture swabs were sent for anaerobic and aerobic cultures. DESCRIPTION OF PROCEDURE: After informed consent was obtained, the patient was taken to the operating room and placed in the supine position. General anesthesia was induced. Preprocedure antibiotics were administered. He was then transitioned to the dorsal lithotomy position. His perineum was prepped and draped in the usual sterile fashion. Timeout was performed. His perianal margin and region were closely inspected. The patient did not have any easily accessible fluid collections from the skin. A LOLI was performed. The patient [address] [address] OPERATIVE REPORT Name: MICHELPEDRO C Room #: 463-P [facility] IN ..#: [id number] Admission: 05/01/19 Attend Phys: Marielena Garcia MD Discharge: 05/02/19 Date of : 70 Report #: [id number] had a large fluctuant mass in the posterior midline just off to the left. The mass was aspirated with a needle and was successful in aspirating purulent fluid. Electrocautery was used to puncture the wall at this location. The purulent fluid was expressed. There was a large volume. The fluid was suctioned out. The abscess cavity was irrigated out. Hemostasis was present. The wound was packed with Nu Gauze. The patient tolerated the procedure well. There were no adverse events throughout the course of the procedure. <ELECTRONICALLY SIGNED> By: Antwan Claros MD 05/03/19 1133 1252 0448 Antwan Claros MD /nt
== END 2019-05-02 14:15 | disposition home or self-care (01) | DRG 988 ==
LOC: ER 07:44 → EROBS 11:18 → 4W 11:18 → EDTRNSPTSTS 05-02 13:27 → ENTRNSPT 05-02 13:27 → 4W 05-02 14:15
PROVIDERS: Emergency Medicine; ADMIT Internal Medicine
PROC: 0J9B0ZZ Drainage of Perineum Subcutaneous Tissue and Fascia, Open Approach (ICD-10-PCS; principal; 2019-05-01)
DX: K61.1 Rectal abscess (principal); B20 Human immunodeficiency virus [HIV] disease; B19.10 Unspecified viral hepatitis B without hepatic coma; M54.30 Sciatica, unspecified side; I10 Essential (primary) hypertension; J45.909 Unspecified asthma, uncomplicated; F31.9 Bipolar disorder, unspecified; Z87.891 Personal history of nicotine dependence; F12.90 Cannabis use, unspecified, uncomplicated; Z93.3 Colostomy status; Z79.899 Other long term (current) drug therapy
CPT/HCPCS: 10040; 50010; 50101; 50386; 62110; 62900; 70005

== ENCOUNTER 2019-09-01 11:56 | Emergency (ER) | payer OTHER ==
[~2019-09-01] VITALS: Ht 175.3 cm; Wt 74.8 kg
[~2019-09-01 11:56] MED LIST changes: +AUGMENTIN 875-1 EACH PO; +SUPER THERAVIT1 EACH PO
[2019-09-01 12:28] LABS: URINE BILIRUBIN NEGATIVE (Negative); URINE BLOOD 1+ (Negative); URINE CLARITY CLEAR; URINE COLOR YELLOW; URINE GLUCOSE-RANDOM* NEGATIVE (Negative); URINE KETONES TRACE (Negative); URINE LEUKOCYTES-REFLEX NEGATIVE (Negative); URINE NITRITE-REFLEX NEGATIVE (Negative); URINE PROTEIN (DIPSTICK) NEGATIVE (Negative)
[2019-09-01 12:35] LABS: BACTERIA-REFLEX 1-9 Few /HPF (None Seen); CASTS None Seen /LPF (None Seen); CRYSTALS None Seen /LPF (None Seen); SQUAMOUS None Seen /LPF (0-3); URINE RBC 3-10 Few /HPF (0-2); URINE WBC-REFLEX None Seen /HPF (0-5)
[2019-09-01 13:33] LABS: HEMATOCRIT 41.9 % (37.0-47.0); HEMOGLOBIN 13.9 gm/dL (12.0-15.0); MCH 30.4 pg (26.0-34.0); MCHC 33.1 g/dL (28.0-37.0); MCV 91.8 fL (80.0-100.0); PLATELET COUNT 363 thou/uL (150-400); RBC 4.56 mil/uL (4.20-5.00); RDW 13.1 % (10.5-14.5); WBC 9.2 thou/uL (4.0-11.0)
[2019-09-01 13:43] LABS: ANION GAP 10 mmol/L (7-16); BUN 9 mg/dL (7-18); CALCIUM 8.5 mg/dL (8.5-10.1); CHLORIDE 97 mmol/L (98-107); CO2 24 mmol/L (21-32); GLUCOSE 109 mg/dL (74-106); SODIUM 131 mmol/L (136-145)
[2019-09-01 13:49] LABS: ALBUMIN 3.4 g/dL (3.4-5.0); DIRECT BILIRUBIN < 0.1 mg/dL (<0.1-0.2); LIPASE 103 U/L (73-393); SGOT 64 U/L (15-37); SGPT 19 U/L (30-65); TOTAL BILIRUBIN 0.4 mg/dL (<0.1-1.0); TOTAL PROTEIN 7.7 g/dL (6.4-8.2)
[2019-09-01 14:07] LABS: ABSOLUTE NEUTROPHILS 6.3 thou/uL (1.4-8.2); PLATELET ESTIMATE NORMAL
[2019-09-01] MEDS ORDERED: TAMIFLU75 MG PO (16:24)
[2019-09-01] MEDS ORDERED: MELOXICAM15 MG PO (16:24)
[2019-09-01 16:45] VITALS: BP 124/105
[2019-09-02] MEDS ORDERED: ZOFRAN ODT4 MG PO (22:44)
== END 2019-09-01 16:47 | disposition home or self-care (01) ==
LOC: ER 11:56
PROVIDERS: Emergency Medicine
DX: B34.9 Viral infection, unspecified (principal); R10.84 Generalized abdominal pain; I10 Essential (primary) hypertension; B20 Human immunodeficiency virus [HIV] disease; J45.909 Unspecified asthma, uncomplicated; F90.9 Attention-deficit hyperactivity disorder, unspecified type; F31.9 Bipolar disorder, unspecified; F17.210 Nicotine dependence, cigarettes, uncomplicated

== ENCOUNTER 2019-09-02 19:04 | Emergency (ER) | payer OTHER ==
[~2019-09-02] VITALS: Ht 175.3 cm; Wt 74.8 kg
[~2019-09-02 19:04] MED LIST changes: +MELOXICAM15 MG PO; +TAMIFLU75 MG PO
[2019-09-02 20:54] LABS: HEMATOCRIT 43.4 % (37.0-47.0); HEMOGLOBIN 14.5 gm/dL (12.0-15.0); MCH 30.8 pg (26.0-34.0); MCHC 33.5 g/dL (28.0-37.0); MCV 91.8 fL (80.0-100.0); PLATELET COUNT 352 thou/uL (150-400); RBC 4.73 mil/uL (4.20-5.00); RDW 13.3 % (10.5-14.5)
[2019-09-02 21:02] LABS: CALCIUM 8.6 mg/dL (8.5-10.1); CREATININE 1.1 mg/dL (0.6-1.0); POTASSIUM 3.6 mmol/L (3.5-5.1)
[2019-09-02 21:59] LABS: ABSOLUTE NEUTROPHILS 6.9 thou/uL (1.4-8.2)
[2019-09-02 22:00] LABS: PLATELET ESTIMATE NORMAL
[2019-09-02] MEDS ORDERED: ZOFRAN ODT4 MG PO (22:44)
[2019-09-02 22:49] VITALS: BP 120/69
== END 2019-09-02 23:11 | disposition home or self-care (01) ==
LOC: ER 19:04
PROVIDERS: Emergency Medicine
DX: J03.90 Acute tonsillitis, unspecified (principal); R11.2 Nausea with vomiting, unspecified; I10 Essential (primary) hypertension; B20 Human immunodeficiency virus [HIV] disease; J45.909 Unspecified asthma, uncomplicated; F90.9 Attention-deficit hyperactivity disorder, unspecified type; F31.9 Bipolar disorder, unspecified; F17.210 Nicotine dependence, cigarettes, uncomplicated

== ENCOUNTER 2019-10-02 17:06 | Emergency (ER) | payer OTHER ==
[~2019-10-02] VITALS: Ht 175.3 cm; Wt 74.8 kg
[2019-10-02] MEDS ORDERED: AMOX TR-K CLV1 EAC3 PO (18:28)
[2019-10-02] MEDS ORDERED: CIPROFLOXIN HC2.5 M1 OPHTHALMIC (18:28)
[2019-10-02 18:30] VITALS: BP 125/85
== END 2019-10-02 18:30 | disposition home or self-care (01) ==
LOC: ER 17:06
DX: J06.9 Acute upper respiratory infection, unspecified (principal); H66.91 Otitis media, unspecified, right ear; J02.9 Acute pharyngitis, unspecified; H10.89 Other conjunctivitis; I10 Essential (primary) hypertension; J45.909 Unspecified asthma, uncomplicated; R51 Headache; H92.02 Otalgia, left ear; F17.210 Nicotine dependence, cigarettes, uncomplicated; Z79.899 Other long term (current) drug therapy

== ENCOUNTER 2019-12-19 19:15 | Emergency (ER) | payer OTHER ==
[~2019-12-19] VITALS: Ht 175.3 cm; Wt 83.9 kg
[~2019-12-19 19:15] MED LIST changes: +AMOX TR-K CLV1 EAC3 PO; +CIPROFLOXIN HC2.5 M1 OPHTHALMIC
[2019-12-19 19:17] VITALS: BP 129/80
[2019-12-19] MEDS ORDERED: AMOXICILLIN 50500 M1 PO (20:24)
== END 2019-12-19 20:30 | disposition home or self-care (01) ==
LOC: ER 19:15
DX: H00.011 Hordeolum externum right upper eyelid (principal); I10 Essential (primary) hypertension; J45.909 Unspecified asthma, uncomplicated; F17.210 Nicotine dependence, cigarettes, uncomplicated; Z79.899 Other long term (current) drug therapy

== ENCOUNTER 2019-12-26 19:29 | Emergency (ER) | payer OTHER ==
[~2019-12-26] VITALS: Ht 175.3 cm; Wt 74.8 kg
[~2019-12-26 19:29] MED LIST changes: +AMOXICILLIN 50500 M1 PO
[2019-12-26] MEDS ORDERED: ZYRTEC10 M2 PO (19:58)
[2019-12-26] MEDS ORDERED: CIPROFLOXIN HC2.5 M1 OPHTHALMIC (19:58)
[2019-12-26] MEDS ORDERED: FLONASE 0.05%50 MCG NARES (19:58)
[2019-12-26 20:23] VITALS: BP 141/94
== END 2019-12-26 20:18 | disposition home or self-care (01) ==
LOC: ER 19:29
DX: H10.9 Unspecified conjunctivitis (principal); I10 Essential (primary) hypertension; J45.909 Unspecified asthma, uncomplicated; F17.210 Nicotine dependence, cigarettes, uncomplicated; Z79.899 Other long term (current) drug therapy; Z98.890 Other specified postprocedural states; Z86.19 Personal history of other infectious and parasitic diseases

== ENCOUNTER 2020-01-02 22:24 | Emergency (ER) | payer OTHER ==
[~2020-01-02] VITALS: Ht 175.3 cm; Wt 81.7 kg
[~2020-01-02 22:24] MED LIST changes: +FLONASE 0.05%50 MCG NARES; +ZYRTEC10 M2 PO
[2020-01-03 01:23] VITALS: BP 117/88
== END 2020-01-03 01:16 | disposition home or self-care (01) ==
LOC: ER 22:24
DX: L02.811 Cutaneous abscess of head [any part, except face] (principal); I10 Essential (primary) hypertension; J45.909 Unspecified asthma, uncomplicated; F17.210 Nicotine dependence, cigarettes, uncomplicated; Z79.899 Other long term (current) drug therapy; Z98.890 Other specified postprocedural states

== ENCOUNTER 2020-09-24 13:27 | Emergency (ER) | payer OTHER ==
[~2020-09-24] VITALS: Ht 175.3 cm; Wt 72.6 kg
[2020-09-24] MEDS ORDERED: NORCO 10-325 T1 EACH PO (14:45)
[2020-09-24 16:55] VITALS: BP 119/78
== END 2020-09-24 16:57 | disposition home or self-care (01) ==
LOC: ER 13:27
DX: S62.397A Other fracture of fifth metacarpal bone, left hand, initial encounter for closed fracture (principal); I10 Essential (primary) hypertension; J45.909 Unspecified asthma, uncomplicated; F17.210 Nicotine dependence, cigarettes, uncomplicated; Z79.899 Other long term (current) drug therapy; Y04.2XXA Assault by strike against or bumped into by another person, initial encounter; Y93.89 Activity, other specified; Y92.89 Other specified places as the place of occurrence of the external cause; Y99.8 Other external cause status

== ENCOUNTER 2021-02-03 19:59 | Emergency (ER) | payer OTHER ==
[~2021-02-03] VITALS: Ht 175.3 cm; Wt 90.7 kg
[~2021-02-03 19:59] MED LIST changes: +NORCO 10-325 T1 EACH PO
[2021-02-03] MEDS ORDERED: AUGMENTIN 875-1 EACH PO (21:23)
[2021-02-03] MEDS ORDERED: PREDNISONE 20 M20 MG PO (21:23)
[2021-02-03 21:32] VITALS: BP 137/78
== END 2021-02-03 21:33 | disposition home or self-care (01) ==
LOC: ER 19:59
DX: H66.93 Otitis media, unspecified, bilateral (principal); R05 Cough; I10 Essential (primary) hypertension; J45.909 Unspecified asthma, uncomplicated; F17.210 Nicotine dependence, cigarettes, uncomplicated; Z98.890 Other specified postprocedural states

== ENCOUNTER 2021-02-08 15:33 | Inpatient (IN) | payer OTHER ==
[~2021-02-08] VITALS: Ht 175.3 cm; Wt 90.7 kg
[~2021-02-08 15:33] MED LIST changes: +PREDNISONE 20 M20 MG PO
[2021-02-08 15:37] VITALS: BP 130/95
[2021-02-08 16:53] LABS: ABSOLUTE NEUTROPHILS 4.7 thou/uL (1.4-8.2); BASOPHILS 0.5 % (0.0-2.0); EOSINOPHILS 3.6 % (0.0-3.0); HEMATOCRIT 41.8 % (37.0-47.0); HEMOGLOBIN 14.1 gm/dL (12.0-15.0); LYMPHOCYTES 13.4 % (24.0-44.0); MCHC 33.8 g/dL (28.0-37.0); MCV 94.7 fL (80.0-100.0); MONOCYTES 17.7 % (1.0-8.0); PLATELET COUNT 362 thou/uL (150-400); POLYS 64.8 % (36.0-66.0); RBC 4.42 mil/uL (4.20-5.00); WBC 7.2 thou/uL (4.0-11.0)
[2021-02-08 16:55] LABS: CALCIUM 8.4 mg/dL (8.5-10.1); CREATININE 1.3 mg/dL (0.6-1.0); POTASSIUM 3.8 mmol/L (3.5-5.1)
[2021-02-08 17:01] LABS: ALBUMIN 3.4 g/dL (3.4-5.0); TOTAL BILIRUBIN 0.3 mg/dL (0.2-1.0)
[2021-02-08 20:24] VITALS: BP 107/72
[2021-02-08 20:25] VITALS: BP 107/72
[2021-02-08 20:44] VITALS: BP 117/70
[2021-02-08] MEDS ORDERED: PEPCID20 MG PO (21:47)
[2021-02-08] MEDS ORDERED: DICYCLOMINE HCL20 MG PO (21:47)
[2021-02-08] MEDS ORDERED: ODEFSEY TABLET1 EACH PO (21:48)
[2021-02-08] MEDS ORDERED: BREO ELLIPTA 11 EACH INH (21:50)
[2021-02-08] MEDS ORDERED: FLUTICASONE PRO16 GM NARES (21:51)
[2021-02-08 22:04] VITALS: BP 133/78
--- NOTE | 2021-02-09 03:08 | NUR ---
PT ADMITTED TO THE UNIT FROM THE ER AT 21OO WITH C/O COUGHING X4DAYS WHICH IS PRODUCTIVE.PT ALSO C/O NON CARDIAC CHEST PAIN FROM COUGHING.PT IS A/O X4.PT IS UP AD JAMES.PT ASKED FOR BREATHING TREATMENT AND MARBLE AND GRANITE POLISHER ERIC NOTIFIED AND ORDERS GIVEN FOR PRN BREATHING TREATMENT.PT NEGATIVE FOR COVID.HOMES MEDS IN IV BIN.IV ACCESS ON LT HAND.WILL CONTINUE TO MONITOR
[2021-02-09 04:00] VITALS: BP 100/73
[2021-02-09 06:53] LABS: CALCIUM 9.1 mg/dL (8.5-10.1); CREATININE 0.9 mg/dL (0.6-1.0); POTASSIUM 4.3 mmol/L (3.5-5.1)
--- NOTE | 2021-02-09 11:23 | NUR ---
PT AMDITTED RELATED TO ACUTE ASTHMA EXACERBATION. CM MET WITH PT AT BEDSIDE THIS DAY. PT APPEARES TO BE A&O X4. CM ROLE INTRODUCED. PT IS TRANSGENDER TRANSITIONING MALE TO FEMALE AND PREERS TO GO BY KHALIDA. PT INDICATED SHE RESIDES ALONE IN A HOUSE WITH 10-12 STEPS TO ENTER AND A FULL FLIGHT TO BASEMENT LAUNDRY. 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 PT DOES HAVE A CANE AT HOME. PT INDICATED SHE HAS A NEBULIZER FOR HOME USE THROUGH [facility]. PT INDICATED HER MOTHER IS HER PAID CAREGIVER THROUGH HER MEDICAID HCBS 25 HRS OVER 7 DAYS. PT INDICATED SHE PLANS TO RETURN HOME ONCE MEDICALLY STABLE. CM TO FOLLOW INDICATED WITH DC PLANNING.
[2021-02-09 14:37] VITALS: BP 136/79
[2021-02-09 20:03] VITALS: BP 139/72
--- NOTE | 2021-02-10 04:16 | NUR ---
ASSESSED AT START OF SHIFT, PT SITTING UP IN BED. COUGH NOTED, PT STATES RIBS HURTS WHEN COUGHING, TYELNOL PROVIDED. GETS BREATHING TREATMENT. ON RA. UP ADLIB IN THE ROOM. IV INTACT AND ABX GIVEN. SOLUMEDROL ALSO PROVIDED. SPUTUM SAMPLE COLLECTED BY DAY NURSE. DENIES NAUSEA. CALLL LIGHT AT REACH AND WILL CONT TO MONITOR.
[2021-02-10 07:31] VITALS: BP 136/92
[2021-02-10 15:35] VITALS: BP 142/85
--- NOTE | 2021-02-10 16:05 | NUR ---
CARE TEAM INDICATED THAT PT IS PROGRESSING SLOWLY TOWARD GOAL OF DISCHARGE. CM FOLLOWING REGARDING DC PLANNING.
--- NOTE | 2021-02-10 17:26 | NUR ---
ASSUMED CARE OF PATIENT AT SHIFT CHANGE. ASSESSMENT CHARTED. MEDICATIONS ADMINISTERED PER EMAR. BP SLIGHTLY ELEVATED; C/O PAIN AND SOB. PROVIDER NOTIFIED AND PATIENT NOW STARTED ON TESSALON PEARLS, MUCINEX AND CODEINE. PATIENT VOICED TESSALON PEARLS AND MUCINEX NOT WORKING; CODEINE ADMINISTERED AND PROVIDED SOME RELIEF. PATIENT CONTINUES TO COUGH; BR. TX CHANGED TO SCHEDULED. PATIENT STILL UP INDEPENDENTLY WITH NO ISSUES. VERY LOUD BUT PLEASANT. WILL CONTINUE TO MONITOR AND FOLLOW PLAN OF CARE
[2021-02-10 20:02] VITALS: BP 133/89
--- NOTE | 2021-02-11 02:48 | NUR ---
PT CARE ASSUMED WITH PT IN BED AT 1900.PT IS A/O X4.PT IS UP AD JAMES.PT IS ON ROOM AIR AND BREATHING TREATMENT.PT C/O PAIN AND PAIN MANAGED WITH CODEINE SYRUP WITH NO ISSUES.IV ACCESS ON RFA WITH SL.WILL CONTINUE TO MONITOR
[2021-02-11 08:16] VITALS: BP 115/72
--- NOTE | 2021-02-11 12:14 | NUR ---
CARE TEAM INDICATED THAT PT IS MEDICALLY STABLE TO DC HOME THIS DAY. PT INDICATED THAT THERE IS MOLD IN HER RENTAL HOME AND THAT [facility] WON'T RESOLVE ISSUE. CM PROVIDED INFO ON [facility] AND FILEING A CONPLAINT THROUGH THE HEALTH DEPARTMENT AND THEIR HEALTH HOME PROGRAM. NO OTHER CM INTERVENTING INDICATED. CASE CLOSED.
[2021-02-11] MEDS ORDERED: MUCINEX600 MG PO (14:16)
[2021-02-11] MEDS ORDERED: ACETAMINOPHEN325 M1 PO (14:16)
[2021-02-11] MEDS ORDERED: MIRALAX17 GM PO (14:16)
[2021-02-11] MEDS ORDERED: LEVOFLOXACIN500 MG PO (14:16)
[2021-02-11] MEDS ORDERED: TESSALON PERLE100 MG PO (14:16)
[2021-02-11] MEDS ORDERED: PREDNISONE 20 M20 M1 PO (14:16)
[2021-02-11 14:33] VITALS: BP 115/72
--- NOTE | 2021-02-11 15:25 | NUR ---
REASSUMED PATIENT CARE AT SHIFT CHANGE. ASSESSMENT CHARTED. MEDICATIONS ADMINISTERED PER EMAR. VSS. PATIENT IS A&OX4 AND MAKES NEEDS KNOWN. NO CHANGES THIS SHIFT. PATIENT WAS CLEARED TO DISCHARGE. INSTRUCTIONS GIVEN TO PATIENT UPON DISCHARGE REGARDING RESPIRATORY STATUS & CARE. IV DISCONTINUED. PATIENT VOICED NO FURTHER NEEDS UPON DISCHARGE.
== END 2021-02-11 15:29 | disposition home or self-care (01) | DRG 202 ==
LOC: ER 15:33 → EROBS 19:29 → 4W 19:29
PROVIDERS: Emergency Medicine; Nurse Practitioner Family; ADMIT Internal Medicine; ATTEND Internal Medicine
DX: J45.901 Unspecified asthma with (acute) exacerbation (principal); J44.1 Chronic obstructive pulmonary disease with (acute) exacerbation; B18.1 Chronic viral hepatitis B without delta-agent; J44.0 Chronic obstructive pulmonary disease with (acute) lower respiratory infection; Z20.822 Contact with and (suspected) exposure to COVID-19; I10 Essential (primary) hypertension; F31.9 Bipolar disorder, unspecified; F12.90 Cannabis use, unspecified, uncomplicated; F17.210 Nicotine dependence, cigarettes, uncomplicated; F90.9 Attention-deficit hyperactivity disorder, unspecified type; J20.9 Acute bronchitis, unspecified; Z79.899 Other long term (current) drug therapy
CPT/HCPCS: 10045